=== PATIENT | male | born 1985 | race Caucasian/White ===

== ENCOUNTER → 2019-11-17 10:10 | Outpatient (CLI) | payer OTHER, SELFPAY ==
[2019-11-17 09:41] VITALS: BMI 24.3
[2019-11-17 13:07] LABS: Anion Gap 5 (5-15); BUN 14 mg/dL (7-18); BUN/Creat Ratio 18.8 RATIO (10-20); Calcium,Total 9.2 mg/dL (8.5-10.1); Chloride 105 mmol/L (98-107); Cholesterol 156 mg/dL (200); Creatinine, Serum 0.74 mg/dL (0.70-1.30); EST Glomerular Filtration Rate 128 mL/min (>60); Est Glom Filt Rate - Afr Amer 154 mL/min (>60); Glucose 87 mg/dL (74-106); High Density Lipoprotein 43 mg/dL; Potassium 4.4 mmol/L (3.5-5.1); Sodium Level 138 mmol/L (136-145); Triglycerides 87 mg/dL; Very Low Density Lipoprotein 17 mg/dL (5-40)
== END ==
PROVIDERS: PCP Family Medicine; Referring Provider Family Medicine; Visit Provider Family Medicine
DX: Z00.00 Encounter for general adult medical examination without abnormal findings (principal)
CPT/HCPCS: 36415; 80048; 80061

== ENCOUNTER → 2020-06-22 16:01 | Outpatient (CLI) | payer OTHER, SELFPAY ==
[2020-06-22 15:26] VITALS: BMI 24.3
== END ==
PROVIDERS: PCP Family Medicine; Referring Provider Internal Medicine; Visit Provider Internal Medicine
DX: R10.13 Epigastric pain (principal)
CPT/HCPCS: 36415; 84484

== ENCOUNTER 2020-07-12 09:46 | Emergency (ER) | payer OTHER, SELFPAY ==
[2020-06-22 16:08] VITALS: BMI 24.3
[2020-07-12 09:47] VITALS: BP 163/73; PULSE 104; RESP 16; TEMP 36.3; O2SAT 99; BMI 23.1
--- NOTE | 2020-07-12 10:07 | NURSING ---
NO OLD EKGS
--- NOTE | 2020-07-12 10:08 | EKG12_ITS ---
Test Reason : CHEST DISCOMFORT Blood Pressure : / mmHG Vent. Rate : 091 BPM Atrial Rate : 091 BPM P-R Int : 146 ms QRS Dur : 102 ms QT Int : 352 ms P-R-T Axes : 058 -17 052 degrees QTc Int : 432 ms Normal sinus rhythm Incomplete right bundle branch block Borderline ECG Confirmed by ADELAIDE DUFF, FRANCIA ([id number]), senior technical editor DAGOBERTO DONALDSON ([id number]) on 07/14/2020 1:05:58 PM Referred By: Confirmed By:FRANCIA BRYSON MD
--- NOTE | 2020-07-12 10:08 | RAD_ITS ---
STUDY: X-RAY CHEST REASON FOR EXAM: Male, 35 years old. PALPITATIONS ACUTE ON-SET TECHNIQUE: Single AP portable view of the chest. COMPARISON: None. FINDINGS: EKG electrodes are seen. The lungs are clear and expanded. There is no demonstrated pleural abnormality. Normal size heart. Normal mediastinum and marco. Normal visualized pulmonary arteries. Normal visualized aortic arch and descending thoracic aorta. Normal visualized thoracic spine. Normal visualized ribs, clavicles, and shoulders. There is no demonstrated abnormality of the visualized soft tissue structures of the upper abdomen. RAD/Chest 1 View (Portable) IMPRESSION: Normal x-ray examination of the chest. Electronically Signed: Mushtaq Krishnan, at 10:44 EDT , Service support ,
[2020-07-12 10:18] LABS: Absolute Lymphocyte Count 1.65 X10^3/uL (0.83-4.51); Absolute Neutrophil Count 7.5 X10^3/uL (2.0-7.7); Basophil# 0.02 X10^3/uL; Basophil% 0.2 % (0-1); Eosinophil# 0.11 X10^3/uL; Eosinophils% 1.1 % (0-5); Hematocrit 44.2 % (40-54); Hemoglobin 15.7 g/dL (13.0-16.5); Lymphocyte # 1.65 X10^3/ul (4.0); Lymphocyte % 16.5 % (19-41); Mean Corp Hgb Conc 35.5 g/dL (32-36); Mean Corpuscular Hgb 30.9 pg (27.0-32.0); Mean Platelet Vol. 9.2 fl (6.2-12.0); Monocyte# 0.71 X10^3/uL; Monocyte% 7.1 % (0-10); NRBC Flagged by Analyzer 0 % (0-5); Neutrophil # 7.45 X10^3/uL (2.7-7.7); Neutrophil % 74.8 % (47-70); Platelet Count 204 K/mm3 (150-450); RBC Distribution Width CV 12.6 % (11.6-14.6); RBC Distribution Width SD 39.6 fl (35.1-43.9); Red Blood Count 5.08 M/mm3 (4.6-6.2)
[2020-07-12 10:43] LABS: Anion Gap 4 (5-15); BUN 11 mg/dL (7-18); BUN/Creat Ratio 12.7 RATIO (10-20); Calcium,Total 9.1 mg/dL (8.5-10.1); Chloride 106 mmol/L (98-107); Creatinine, Serum 0.87 mg/dL (0.70-1.30); EST Glomerular Filtration Rate 107 mL/min (>60); Est Glom Filt Rate - Afr Amer 129 mL/min (>60); Estimated Creatinine Clearance 130.02 ml/min; Glucose 117 mg/dL (74-106); Magnesium 2.1 mg/dL (1.6-2.6); Potassium 5.2 mmol/L (3.5-5.1); Sodium Level 140 mmol/L (136-145); Thyroid Stim Hormone (TSH) 1.39 uIU/mL (0.358-3.74)
--- NOTE | 2020-07-12 10:47 | ED.DCSUM_ITS ---
History of Present Illness Chief Complaint: Palpitations Informant: Patient Narrative: Patient states that last night he began to have a heart rate around 100. He states that is definitely different than what he normally feels. He is able to sleep but it was still present this morning. He states sometimes it comes down into the 80s and sometimes up to around 120. He denies any chest pain with it. No shortness of breath. He states that he had bit of a head cold yesterday and took some Sudafed. He has not had any for about 24 hours. He states that he has had 3 pops in the past week. No DVT PE risk factors. He has not had this before. Past Medical History - Allergies and Home Meds Allergies/Adverse Reactions: Allergies Penicillins Allergy (Unknown, Verified 07/12/20 09:46) Unknown Primary Care Physician: Amilcar Maria DO [Primary Care Provider] - Past Medical History: None Surgical History: noncontributory Lives: With Family Smoking Status: Never smoker Drugs: None Review of Systems General: Denies: Chills, Fever, Sweats Eyes: Denies: Visual changes - bilaterally, Diplopia ENT: Denies: Rhinorrhea, Sore throat Cardiovascular: Reports: Heart racing. Denies: Chest pain, Palpitations Respiratory: Denies: Dyspnea, Cough, Dyspnea on exertion Gastrointestinal: Denies: Abdominal pain, Nausea, Vomiting, Diarrhea, Melena, Hematochezia Genitourinary: Denies: Dysuria, Hematuria, Frequency Musculoskeletal: Denies: Back pain, Extremity Pain Skin: Denies: Rash, Wounds Neurological: Denies: Headache, Weakness, Numbness Physical Exam Vital Signs/Narrative: Vital Signs Temp Pulse Resp BP Pulse Ox 07/12/20 09:47 97.3 F L 104 H 16 163/73 H 99 Inital Vital Signs reviewed: Yes General: Well nourished, Well developed, No Acute Distress Head: Normocephalic, Atraumatic Eyes: Perrl, EOMI ENT: Moist mucous membranes, No rhinorrhea Neck: Supple, Nontender Cardiovascular: Regular rate, Regular rhythm, No murmurs Respiratory: No distress, CTA bilaterally, Chest nontender Abdomen: Soft, Nontender, Nondistended, Normal bowel sounds Back: Nontender, Normal Inspection Extremities: Nontender, No edema Skin: Normal color, No rash Neurological: Alert, Oriented x3, Cranial nerves II-XII grossly intact, Normal Strength, Normal Sensation Psychological: Normal affect, Normal Mood Diagnostic/Tx/Re-eval Clinical Impression(s) from Imaging Studies Chest X-Ray 07/12/20 10:08 IMPRESSION: Normal x-ray examination of the chest. Electronically Signed: Mushtaq Krishnan, at 10:44 EDT , Service support , Laboratory Last Values WBC 10.0 K/mm3 (4.4-11.0) 07/12/20 10:10 RBC 5.08 M/mm3 (4.6-6.2) 07/12/20 10:10 Hgb 15.7 g/dL (13.0-16.5) 07/12/20 10:10 Hct 44.2 % (40-54) 07/12/20 10:10 MCV 87.0 fL (80-94) 07/12/20 10:10 MCH 30.9 pg (27.0-32.0) 07/12/20 10:10 MCHC 35.5 g/dL (32-36) 07/12/20 10:10 RDW Std Deviation 39.6 fl (35.1-43.9) 07/12/20 10:10 RDW Coeff of Josh 12.6 % (11.6-14.6) 07/12/20 10:10 Plt Count 204 K/mm3 (150-450) 07/12/20 10:10 MPV 9.2 fl (6.2-12.0) 07/12/20 10:10 Immature Gran % (Auto) 0.300 % (0.0-0.9) 07/12/20 10:10 Neut % (Auto) 74.8 % (47-70) H 07/12/20 10:10 Lymph % (Auto) 16.5 % (19-41) L 07/12/20 10:10 [place] % (Auto) 7.1 % (0-10) 07/12/20 10:10 Eos % (Auto) 1.1 % (0-5) 07/12/20 10:10 Baso % (Auto) 0.2 % (0-1) 07/12/20 10:10 Absolute Neuts (auto) 7.5 X10^3/uL (2.0-7.7) 07/12/20 10:10 Absolute Lymphs (auto) 1.65 X10^3/uL (0.83-4.51) 07/12/20 10:10 Nucleated RBC % 0 % (0-5) 07/12/20 10:10 D-Dimer Quant (PE/DVT) 0.28 FEU/ug/m (0.27-0.49) 07/12/20 10:10 Sodium 140 mmol/L (136-145) 07/12/20 10:10 Potassium 5.2 mmol/L (3.5-5.1) H 07/12/20 10:10 Chloride 106 mmol/L (98-107) 07/12/20 10:10 Carbon Dioxide 30.0 mmol/L (21.0-32.0) 07/12/20 10:10 Anion Gap 4 (5-15) L 07/12/20 10:10 BUN 11 mg/dL (7-18) 07/12/20 10:10 Creatinine 0.87 mg/dL (0.70-1.30) 07/12/20 10:10 Estim Creat Clear Calc 130.02 ml/min 07/12/20 10:10 Est GFR (MDRD) Af Amer 129 mL/min (>60) 07/12/20 10:10 Est GFR (MDRD) Non-Af 107 mL/min (>60) 07/12/20 10:10 BUN/Creatinine Ratio 12.7 RATIO (-20) 07/12/20 10:10 Glucose 117 mg/dL (74-106) H 07/12/20 10:10 Calcium 9.1 mg/dL (8.5-10.1) 07/12/20 10:10 Magnesium 2.1 mg/dL (1.6-2.6) 07/12/20 10:10 Troponin I < 0.015 ng/mL (<0.045) 07/12/20 10:10 TSH 1.39 uIU/mL (0.358-3.74) 07/12/20 10:10 - EKG Initial EKG Interpretation: Sinus Rhythm - EKG demonstrates a normal sinus rhythm with an incomplete right bundle branch block. - Medical Decision Making The patient was observed on the monitor and has had quite a variety of rate. It does not coincide with respiratory variation or Valsalva. Patient was observed on the monitor. He has had rates as low as 71 and as high as 119. I discussed the case with Dr. Jenkins from cardiology and we reviewed his EKG. At this point patient will abstain from any stimulant such as the Sudafed or caffeinated products. He is to monitor his heart rate if he continues to be above 100 he should follow-up with cardiology return if worsening or concerns ED Disposition - Plan for ED Patient: Disposition: Home or Assisted Living Diagnosis: Sinus arrhythmia, Chest pain Instructions: ED Palpitations Referrals: Eriberto Jenkins MD [STAFF PHYSICIAN] - (call to arrange follow up with Cardiology if needed)
[2020-07-12 10:59] LABS: D-Dimer Quantitative (DVT/PE) 0.28 FEU/ug/m (0.27-0.49)
[2020-07-12 11:30] VITALS: BP 135/92; PULSE 92; RESP 22; O2SAT 97
[2020-07-12 12:15] VITALS: BP 125/92; PULSE 87; RESP 24; O2SAT 97
== END 2020-07-12 12:16 | disposition home or self-care (01) ==
PROVIDERS: Emergency Provider Emergency Medicine; PCP Family Medicine
DX: R07.89 Other chest pain (principal); I49.9 Cardiac arrhythmia, unspecified; I45.10 Unspecified right bundle-branch block
CPT/HCPCS: 71045; 80048; 83735; 84443; 84484; 85025; 85379; 93005; 99284; A4216

== ENCOUNTER 2020-07-14 14:37 | Emergency (ER) | payer OTHER, SELFPAY ==
[2020-07-14 14:39] VITALS: BP 146/109; PULSE 99; RESP 17; TEMP 36.9; O2SAT 99; BMI 23.4
--- NOTE | 2020-07-14 16:07 | EKG12_ITS ---
Test Reason : LEFT ARM PAIN Blood Pressure : / mmHG Vent. Rate : 068 BPM Atrial Rate : 068 BPM P-R Int : 128 ms QRS Dur : 106 ms QT Int : 374 ms P-R-T Axes : 049 002 049 degrees QTc Int : 397 ms Sinus rhythm with marked sinus arrhythmia Incomplete right bundle branch block Borderline ECG Confirmed by ADELAIDE DUFF, FRANCIA ([id number]), scientific publications editor DAGOBERTO DONALDSON ([id number]) on 07/19/2020 8:43:29 AM Referred By: Confirmed By:FRANCIA BRYSON MD
--- NOTE | 2020-07-14 16:08 | ED.DCSUM_ITS ---
History of Present Illness Chief Complaint: Cough Informant: Patient Narrative: Patient was seen 2 days ago by myself for palpitations. He had a runny nose and slight sore throat. No fevers. He had an EKG that was negative. He states that he continues to have the occasional discomfort in the left upper chest with intermittent tingling of the left arm and hand. States [facility] and [facility] forehead scan and his temperature was 100.4 but when he got here he was afebrile. He states that his and children has a runny nose as well. Someone that he was with on Friday has now tested positive for COVID. He has cardiology follow-up next Friday. Past Medical History - Allergies and Home Meds Allergies/Adverse Reactions: Allergies Penicillins Allergy (Unknown, Verified 07/14/20 14:39) Unknown Primary Care Physician: Eriberto Jenkins MD [STAFF PHYSICIAN] - Keep Martin appointment Amilcar Maria DO [Primary Care Provider] - 1 Week if not improving Prior records reviewed: Yes Past Medical History: None Surgical History: noncontributory Lives: With Family Smoking Status: Never smoker Drugs: None Review of Systems General: Denies: Chills, Fever, Sweats Eyes: Denies: Visual changes - bilaterally, Diplopia ENT: Reports: Rhinorrhea, Sore throat Cardiovascular: Reports: Chest pain. Denies: Palpitations Respiratory: Reports: Cough. Denies: Dyspnea, Dyspnea on exertion Gastrointestinal: Denies: Abdominal pain, Nausea, Vomiting, Diarrhea, Melena, Hematochezia Genitourinary: Denies: Dysuria, Hematuria, Frequency Musculoskeletal: Denies: Back pain, Extremity Pain Skin: Denies: Rash, Wounds Neurological: Reports: Parasthesia. Denies: Headache, Weakness, Numbness Physical Exam Vital Signs/Narrative: Vital Signs Temp Pulse Resp BP Pulse Ox 07/14/20 14:39 98.5 F 99 17 146/109 H 99 Inital Vital Signs reviewed: Yes General: Well nourished, Well developed, No Acute Distress Head: Normocephalic, Atraumatic Eyes: Perrl, EOMI ENT: Moist mucous membranes, Nasal congestion Neck: Supple, Nontender Cardiovascular: Regular rate, Regular rhythm, No murmurs Respiratory: No distress, CTA bilaterally, Chest nontender Abdomen: Soft, Nontender, Nondistended, Normal bowel sounds Back: Nontender, Normal Inspection Extremities: Nontender, No edema Skin: Normal color, No rash Neurological: Alert, Oriented x3, Cranial nerves II-XII grossly intact, Normal Strength, Normal Sensation Psychological: Normal affect, Normal Mood Diagnostic/Tx/Re-eval Clinical Impression(s) from Imaging Studies Chest X-Ray 07/14/20 16:20 IMPRESSION: Normal x-ray examination of the chest. Electronically Signed: Cal Stevenson MD at 16:44 EDT , Service support , - EKG Initial EKG Interpretation: Sinus Rhythm - EKG demonstrated sinus rhythm with sinus arrhythmia. Incomplete right bundle branch block noted. Rate of 68. No significant change from 2 days ago. - Medical Decision Making Chest x-ray shows no acute process and his EKG is unchanged. Patient had a d- dimer and troponin days ago that were negative. As his symptoms really have not changed I do not feel they need to be repeated. We will swab him for COVID. He has follow-up arranged with cardiology. Patient should self isolate until his COVID is back. ED Disposition - Plan for ED Patient: Disposition: Home or Assisted Living Diagnosis: Viral URI with cough, Palpitations Instructions: ED Palpitations, ED URI Viral Referrals: Amilcar Maria DO [Primary Care Provider] - 1 Week if not improving Eriberto Jenkins MD [STAFF PHYSICIAN] - Keep Martin appointment
--- NOTE | 2020-07-14 16:20 | RAD_ITS ---
STUDY: X-RAY CHEST REASON FOR EXAM: Male, 35 years old. COUGH, SORE THROAT AND FEVER STARTING FRIDAY - -- PALPITATIONS, AND TINGLING DOWN LEFT ARM -- REPORTS INTERMITTENT CHEST DISCOMFORT TECHNIQUE: Single AP portable view of the chest. COMPARISON: 07/12/2020. FINDINGS: The lungs are clear and expanded. There is no demonstrated pleural abnormality. Normal size heart. Normal mediastinum and marco. Normal visualized pulmonary arteries. Normal visualized aortic arch and descending thoracic aorta. Normal visualized thoracic spine. Normal visualized ribs, clavicles, and shoulders. There is no demonstrated abnormality of the visualized soft tissue structures of the upper abdomen. RAD/Chest 1 View (Portable) IMPRESSION: Normal x-ray examination of the chest. Electronically Signed: Cal Stevenson MD at 16:44 EDT , Service support ,
[2020-07-14 17:00] VITALS: BP 152/98; PULSE 101; RESP 17; TEMP 37.2; O2SAT 98
== END 2020-07-14 17:00 | disposition home or self-care (01) ==
PROVIDERS: Emergency Provider Emergency Medicine; PCP Family Medicine
DX: J06.9 Acute upper respiratory infection, unspecified (principal); R00.2 Palpitations; I45.10 Unspecified right bundle-branch block
CPT/HCPCS: 71045; 87635; 93005; 99282; U0003

== ENCOUNTER → 2020-08-16 11:00 | Outpatient (CLI) | payer OTHER, SELFPAY ==
[2020-07-19 09:36] VITALS: BMI 23.8
[2020-07-26 11:12] VITALS: BMI 23.8
--- NOTE | 2020-08-16 11:02 | ECHOD_ITS ---
Reason For Study: ARRHYTHYMIA Procedure This was a 2D Doppler, Color Flow transthoracic echocardiogram. Exam performed in department. Left Ventricle Normal LV size. Left ventricular systolic function is normal. The estimated ejection fraction is 55 %. Normal diastology for age. No regional wall motion abnormalities noted. Right Ventricle Normal RV size. Normal systolic function. Atria Normal left atrium. Normal right atrium. Mitral Valve Normal mitral valve. Tricuspid Valve Normal tricuspid valve. Aortic Valve Normal aortic valve. Pulmonic Valve Normal pulmonic valve. Great Vessels Normal aortic root. The pulmonary artery is normal size. Inferior vena cava collapse with respiration. Pericardium/Pleural No pericardial effusion. MMode/2D Measurements & Calculations LVIDd: 5.7 cm IVSd: 0.86 cm Ao root diam: 3.5 cm LVIDs: 3.9 cm LVPWd: 0.95 cm RVDd: 4.1 cm FS: 32.2 % LAV(MOD-bp): 48.8 ml LVAd ap4: 35.8 cm2 SV(MOD-sp4): 75.8 ml LAV(MOD-bp) Indexed: 24.2 ml/m2 EDV(MOD-sp4): 125.3 ml LAV(MOD-sp2): 49.1 ml EDV(sp4-el): 124.4 ml LAV(MOD-sp4): 48.0 ml LVAs ap4: 19.4 cm2 ESV(MOD-sp4): 49.5 ml ESV(sp4-el): 45.9 ml EF(MOD-sp4): 60.5 % EF(sp4-el): 63.1 % SV(sp4-el): 78.5 ml LA A4 area: 17.8 cm2 LA dimension(2D): 3.5 cm RA A4 area: 15.6 cm2 Time Measurements MV dec time: 0.18 sec Doppler Measurements & Calculations MV E max rosales: 76.7 cm/sec Lat Peak E' Rosales: 17.1 cm/sec Med Peak E' Rosales: 12.4 cm/sec MV A max rosales: 45.4 cm/sec E/E' lat: 4.5 E/E' med: 6.2 MV E/A: 1.7 Ao V2 max: 135.7 cm/sec LV V1 max: 112.6 cm/sec PA V2 max: 110.8 cm/sec Ao max P.4 mmHg LV V1 max P.1 mmHg Interpretation Summary Normal LV size. Left ventricular systolic function is normal. The estimated ejection fraction is 55 %. Normal diastology for age. Ordering Physician: Eriberto Jenkins Referring Physician: AVIS GRAVES Performed By: Rosy Agarwal RDCS
== END ==
PROVIDERS: PCP Family Medicine; Referring Provider Internal Medicine Cardiovascular Disease; Visit Provider Internal Medicine Cardiovascular Disease
DX: I49.9 Cardiac arrhythmia, unspecified (principal)
CPT/HCPCS: 93225; 93226; 93306

== ENCOUNTER → 2020-09-01 09:49 | Outpatient (CLI) | payer OTHER, SELFPAY ==
[2020-07-26 11:12] VITALS: BMI 23.8
--- NOTE | 2020-09-01 12:47 | STRESSREP_ITS ---
Stress Test Report Exercise stress test. 35-year-old male with a history of chest pain. Stress protocol: Resting EKG demonstrates normal sinus rhythm with a rate of 54 bpm normal intervals are noted resting blood pressure 124/82 mmHg. Patient exercised according to regular Rogelio protocol for a total duration of 13 minutes. Patient completed 1 minute into stage V of the Rogelio protocol. The maximum heart rate attained was 193 bpm which was 104% of max impacted heart rate the maximum workload was 15.3 metabolic equivalents. At rest there were no ST or T wave changes noted to suggest ischemia peak exercise upsloping ST changes only were noted with no meet the criteria for ischemia. No clinical angina was noted. No arrhythmias were noted. The peak blood pressure was 150/70 mmHg. Conclusion: Exercise stress test with no EKG criteria for ischemia at a high workload. Chest discomfort noted of unclear significance.. The above was constant thro ughout the exercise.
== END ==
PROVIDERS: PCP Family Medicine; Referring Provider Internal Medicine Cardiovascular Disease; Visit Provider Internal Medicine Cardiovascular Disease
DX: I49.9 Cardiac arrhythmia, unspecified (principal); I45.10 Unspecified right bundle-branch block; R07.9 Chest pain, unspecified
CPT/HCPCS: 93017

== ENCOUNTER 2020-09-09 18:37 | Emergency (ER) | payer OTHER, SELFPAY ==
[2020-07-26 11:12] VITALS: BMI 23.8
[2020-09-09 18:39] VITALS: BP 177/91; PULSE 60; RESP 17; TEMP 36.9; O2SAT 97; BMI 24.2
--- NOTE | 2020-09-09 18:42 | EKG12_ITS ---
Test Reason : CP Blood Pressure : / mmHG Vent. Rate : 060 BPM Atrial Rate : 060 BPM P-R Int : 124 ms QRS Dur : 106 ms QT Int : 406 ms P-R-T Axes : 063 003 054 degrees QTc Int : 406 ms Normal sinus rhythm Incomplete right bundle branch block Borderline ECG Confirmed by ADELAIDE DUFF, FRANCIA ([id number]), video editor HERIBERTO DOSHI ([id number] on 09/13/2020 12:52:36 PM Referred By: PHAN Confirmed By:FRANCIA BRYSON MD
--- NOTE | 2020-09-09 18:57 | ED.VISSUMM ---
- ER Visit Summary Date of Service: 09/09/20 Chief Complaint: Chest pain History of Present Illness: The patient is a 35 M with chest pain that he describes as a tingling across his chest. This has been going on for 8 weeks. Nothing seemed to bring this on today. He had a negative stress test. He also had an echo and Holter monitoring. He has a history of anxiety and has taken 2 doses of an SSRI. Physical Examination: Afebrile and vital signs unremarkable except blood pressure 177/91. Heart regular. Lungs clear. Skin, calves, pulses unremarkable. Test Results: EKG shows sinus rhythm at a rate of 60 with an incomplete right bundle branch block pattern, this is old. Emergency Department Course and Treatment: Patient had a cardiac work-up. PERC negative. Nothing to suggest an aortic dissection. No infectious symptoms. I suspect this is from some component of anxiety. Patient will follow up with his outpatient physicians. Return for anything new or worsening. Treatment Plan: As above Disposition: Discharge Impression: Paresthesias This note was generated with [employer] dictation software. It may contain incorrect words, spelling, and punctuation that were not noted in review of the chart prior to signing ED Disposition - Plan for ED Patient: Referrals: Amilcar Maria DO [Primary Care Provider] -
--- NOTE | 2020-09-09 18:59 | ED.DEP ---
ED Disposition - Plan for ED Patient: Instructions: ED Chest Pain Atypical Unkn Cause Referrals: Amilcar Maria DO [Primary Care Provider] -
[2020-09-09 19:15] VITALS: RESP 16
== END 2020-09-09 19:15 | disposition home or self-care (01) ==
LOC: ED 19:07
PROVIDERS: Emergency Provider Emergency Medicine; PCP Family Medicine
DX: R07.89 Other chest pain (principal); R20.2 Paresthesia of skin; I45.10 Unspecified right bundle-branch block; F41.9 Anxiety disorder, unspecified; Z79.899 Other long term (current) drug therapy
CPT/HCPCS: 93005; 99282

== ENCOUNTER → 2020-09-27 10:02 | Outpatient (CLI) | payer OTHER, SELFPAY ==
[2020-09-09 18:39] VITALS: BMI 24.2
[2020-09-27 12:13] LABS: Absolute Lymphocyte Count 1.62 X10^3/uL (0.83-4.51); Absolute Neutrophil Count 2.4 X10^3/uL (2.0-7.7); Basophil# 0.03 X10^3/uL; Basophil% 0.7 % (0-1); Eosinophil# 0.05 X10^3/uL; Eosinophils% 1.1 % (0-5); Hematocrit 47.8 % (40-54); Hemoglobin 16.5 g/dL (13.0-16.5); Lymphocyte # 1.62 X10^3/ul (4.0); Lymphocyte % 36.6 % (19-41); Mean Corp Hgb Conc 34.5 g/dL (32-36); Mean Corpuscular Hgb 30.7 pg (27.0-32.0); Mean Platelet Vol. 9.7 fl (6.2-12.0); Monocyte% 6.8 % (0-10); NRBC Flagged by Analyzer 0 % (0-5); Neutrophil # 2.43 X10^3/uL (2.7-7.7); Neutrophil % 54.8 % (47-70); Platelet Count 221 K/mm3 (150-450); RBC Distribution Width CV 12.6 % (11.6-14.6); RBC Distribution Width SD 41.4 fl (35.1-43.9); Red Blood Count 5.37 M/mm3 (4.6-6.2); White Blood Count 4.4 K/mm3 (4.4-11.0)
[2020-09-27 12:42] LABS: ALB/GLOB Ratio 1.2 RATIO (0.9-2.4); AST(SGOT) 21 U/L (15-37); Alanine Aminotransfer ALT/SGPT 25 U/L (16-61); Albumin, Serum 4.4 g/dL (3.2-5.0); Alkaline Phosphatase 93 U/L (45-117); Anion Gap 5 (5-15); BUN 11 mg/dL (7-18); BUN/Creat Ratio 13.9 RATIO (10-20); Calcium,Total 9.5 mg/dL (8.5-10.1); Chloride 103 mmol/L (98-107); Creatinine, Serum 0.79 mg/dL (0.70-1.30); EST Glomerular Filtration Rate 118 mL/min (>60); Est Glom Filt Rate - Afr Amer 143 mL/min (>60); Globulin 3.8 g/dL (2.2-4.2); Glucose 87 mg/dL (74-106); Potassium 4.1 mmol/L (3.5-5.1); Protein, Total 8.2 g/dL (6.4-8.2); Sodium Level 139 mmol/L (136-145)
== END ==
PROVIDERS: PCP Family Medicine; Referring Provider Family Medicine; Visit Provider Family Medicine
DX: R42 Dizziness and giddiness (principal)
CPT/HCPCS: 36415; 80053; 85025

== ENCOUNTER → 2020-09-28 11:09 | Outpatient (CLI) | payer OTHER, SELFPAY ==
[2020-09-09 18:39] VITALS: BMI 24.2
[2020-09-28 12:31] LABS: Bilirubin, Direct 0.32 mg/dL (0.00-0.30)
== END ==
PROVIDERS: PCP Family Medicine; Referring Provider Family Medicine; Visit Provider Family Medicine
DX: R17 Unspecified jaundice (principal)
CPT/HCPCS: 36415; 82247; 82248

== ENCOUNTER → 2021-03-01 14:05 | Outpatient (CLI) | payer OTHER, SELFPAY ==
[2021-03-01 15:14] LABS: Absolute Lymphocyte Count 2.51 X10^3/uL (0.83-4.51); Absolute Neutrophil Count 3.2 X10^3/uL (2.0-7.7); Basophil# 0.03 X10^3/uL; Basophil% 0.5 % (0-1); Eosinophil# 0.08 X10^3/uL; Eosinophils% 1.3 % (0-5); Hematocrit 42.6 % (40-54); Hemoglobin 14.8 g/dL (13.0-16.5); Lymphocyte # 2.51 X10^3/ul (0.83-4.51); Lymphocyte % 40.4 % (19-41); Mean Corp Hgb Conc 34.7 g/dL (32-36); Mean Corpuscular Hgb 30.7 pg (27.0-32.0); Mean Corpuscular Volume 88.4 fL (80-94); Mean Platelet Vol. 9.4 fl (6.2-12.0); Monocyte# 0.36 X10^3/uL; Monocyte% 5.8 % (0-10); NRBC Flagged by Analyzer 0 % (0-5); Neutrophil # 3.22 X10^3/uL (2.7-7.7); Neutrophil % 51.8 % (47-70); Platelet Count 249 K/mm3 (150-450); RBC Distribution Width CV 12.2 % (11.6-14.6); RBC Distribution Width SD 39.6 fl (35.1-43.9); Red Blood Count 4.82 M/mm3 (4.6-6.2); White Blood Count 6.2 K/mm3 (4.4-11.0)
[2021-03-01 15:26] LABS: AST(SGOT) 17 U/L (15-37); Alanine Aminotransfer ALT/SGPT 20 U/L (16-61); Albumin, Serum 3.8 g/dL (3.2-5.0); Alkaline Phosphatase 96 U/L (45-117); Anion Gap 6 (5-15); BUN 11 mg/dL (7-18); Calcium,Total 8.9 mg/dL (8.5-10.1); Chloride 102 mmol/L (98-107); Creatinine, Serum 0.73 mg/dL (0.70-1.30); EST Glomerular Filtration Rate 129 mL/min (>60); Est Glom Filt Rate - Afr Amer 156 mL/min (>60); Glucose 106 mg/dL (74-106); Potassium 3.9 mmol/L (3.5-5.1); Protein, Total 7.8 g/dL (6.4-8.2); Sodium Level 139 mmol/L (136-145)
== END ==
PROVIDERS: PCP Family Medicine; Referring Provider Family Medicine; Visit Provider Family Medicine
DX: E80.4 Gilbert syndrome (principal)
CPT/HCPCS: 36415; 80053; 85025

== ENCOUNTER → 2021-08-06 15:20 | Outpatient (CLI) | payer OTHER, SELFPAY ==
--- NOTE | 2021-08-06 15:35 | RAD_ITS ---
STUDY: X-RAY - ORBITS REASON FOR EXAM: Male, 36 years old. FOREIGN BODY TECHNIQUE: 2 view(s) of the orbits were obtained. COMPARISON: None. FINDINGS: Normal bilateral orbits without a metallic orbital foreign body. Normal visualized facial bones. Normal paranasal sinuses. The soft tissue structures are unremarkable. RAD/Orbits for Foreign Body IMPRESSION: No demonstrated metallic orbital foreign body. The patient is cleared for an MRI examination. Electronically Signed: Mushtaq Krishnan MD at 15:45 EDT , Service support ,
--- NOTE | 2021-08-06 16:00 | MRI_ITS ---
STUDY: MRI CERVICAL SPINE WITH AND WITHOUT CONTRAST REASON FOR EXAM: Male, 36 years old. PARESTHESIAS,FASCICULATIONS,POSSIBLE DYSAUTONOMIA TECHNIQUE: Standardized fat and water weighted pulse sequences were obtained in the sagittal and axial following administration of 15ml Dotarem via IV. COMPARISON: None FINDINGS: Nonenhancing cystic structures surrounded the exiting nerve roots on the right and C5-6, C6-7, C7-T1, and T1 to, and on the left at C6-7, and T1-2. Normal foramen magnum and brainstem-cervical cord junction. Normal craniovertebral junction. Normal anterior atlantoaxial articulation. Normal odontoid process. Normal cervical lordosis. Normal vertebral bodies and posterior osseous elements. C2-3: Normal endplates. Normal disc height, signal and morphology. Normal central canal and intervertebral neural foramina. C3-4: Normal endplates. Normal disc height, signal and morphology. Normal central canal and intervertebral neural foramina. C4-5: Normal endplates. Normal disc height, signal and morphology. Normal central canal and intervertebral neural foramina. C5-6: Normal endplates. Normal disc height, signal and morphology. Normal central canal and intervertebral neural foramina. C6-7: Normal endplates. Normal disc height, signal and morphology. Normal central canal and intervertebral neural foramina. C7-T1: Normal endplates. Normal disc height, signal and morphology. Normal central canal and intervertebral neural foramina. Normal cervical cord. No abnormal cord signal. Normal visualized soft tissue structures. 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 Otherwise normal unenhanced and enhanced MR examination of the cervical spine. Electronically Signed: Arian Landin MD at 22:24 EDT Tel , Service support ,
--- NOTE | 2021-08-06 16:45 | MRI_ITS ---
STUDY: MRI BRAIN WITH AND WITHOUT CONTRAST REASON FOR EXAM: Male, 36 years old. PARESTHESIAS,FASCICULATIONS,POSSIBLE DYSAUTONOMIA TECHNIQUE: Standardized multiplanar fat and water weighted pulse sequences were obtained. IV 15ml Dotarem was administered for the contrast portion of the examination. COMPARISON: None. FINDINGS: Normal size of the ventricles and extra-axial spaces for the patient''s age. Normal white matter tracts of the supratentorial brain. There is no evidence for recent intracranial ischemia or other cause of cytotoxic edema on diffusion weighted imaging (DWI). Normal T2* images of the brain without demonstrated susceptibility artifact. There is no demonstrated hemosiderin stain. There are no demyelinating plagues of the supratentorial brain, brainstem or cerebellum. There are no findings suspicious for multiple sclerosis (MS). Normal bilateral basal ganglia. Normal thalami. There is no extra-axial fluid accumulation. Normal flow voids within the major intracranial circulation suggesting patency by spin echo criteria. Normal venous enhancement. There is no enhancing intra-axial or extra-axial abnormality. Normal sella turcica, pituitary gland, infundibular stalk, optic chiasm and hypothalamus. Normal tectal plate and pineal gland. Normal midbrain, rajesh and medulla. Normal cerebellum. Normal basal cisterns. Normal bilateral temporal bones. Normal bilateral internal auditory canals. No demonstrated orbital abnormality, within the constraints of a routine brain study. Normal visualized paranasal sinuses. Normal calvarium and skull base. Normal visualized soft tissue structures. Normal visualized upper cervical spine. MRI/Brain W/WO Contrast IMPRESSION: Normal unenhanced and enhanced MRI of the brain. Electronically Signed: Arian Landin MD at 22:15 EDT Tel , Service support ,
== END ==
PROVIDERS: PCP Family Medicine; Referring Provider Family Medicine; Visit Provider Family Medicine
DX: R20.2 Paresthesia of skin (principal); R25.3 Fasciculation; R42 Dizziness and giddiness
CPT/HCPCS: 70030; 70553; 72156; A9575

== ENCOUNTER → 2023-09-16 | Outpatient (CLI) | payer OTHER, SELFPAY ==
[2023-09-16 17:43] LABS: Absolute Lymphocyte Count 2.25 X10^3/uL (0.83-4.51); Absolute Neutrophil Count 4.6 X10^3/uL (2.0-7.7); Basophil# 0.04 X10^3/uL; Basophil% 0.5 % (0-1); Eosinophil# 0.06 X10^3/uL; Eosinophils% 0.8 % (0-5); Hematocrit 45.2 % (40-54); Hemoglobin 15.8 g/dL (13.0-16.5); Lymphocyte # 2.25 X10^3/ul (0.83-4.51); Lymphocyte % 30.4 % (19-41); Mean Corpuscular Hgb 30.6 pg (27.0-32.0); Mean Corpuscular Volume 87.6 fL (80-94); Mean Platelet Vol. 9.6 fl (6.2-12.0); Monocyte% 5.4 % (0-10); NRBC Flagged by Analyzer 0 % (0-5); Neutrophil # 4.62 X10^3/uL (2.7-7.7); Neutrophil % 62.6 % (47-70); Platelet Count 261 K/mm3 (150-450); RBC Distribution Width CV 12.9 % (11.6-14.6); RBC Distribution Width SD 41.2 fl (35.1-43.9); Red Blood Count 5.16 M/mm3 (4.6-6.2); White Blood Count 7.4 K/mm3 (4.4-11.0)
[2023-09-16 18:14] LABS: AST(SGOT) 23 U/L (15-37); Alanine Aminotransfer ALT/SGPT 27 U/L (16-61); Albumin, Serum 4.1 g/dL (3.2-5.0); Alkaline Phosphatase 112 U/L (45-117); Anion Gap 7 (5-15); BUN 8 mg/dL (7-18); BUN/Creat Ratio 11.1 RATIO (10-20); Chloride 103 mmol/L (98-107); Cholesterol 181 mg/dL (200); Creatinine, Serum 0.72 mg/dL (0.70-1.30); EST Glomerular Filtration Rate 130 mL/min (>60); Est Glom Filt Rate - Afr Amer 157 mL/min (>60); Globulin 4.3 g/dL (2.2-4.2); Glucose 89 mg/dL (74-106); High Density Lipoprotein 47 mg/dL; Potassium 4.2 mmol/L (3.5-5.1); Protein, Total 8.4 g/dL (6.4-8.2); Sodium Level 139 mmol/L (136-145); T4 Free Direct 1.02 ng/dL (0.76-1.46); Thyroid Stim Hormone (TSH) 1.85 uIU/mL (0.358-3.74); Triglycerides 99 mg/dL; Very Low Density Lipoprotein 20 mg/dL (5-40)
== END | disposition home or self-care (01) ==
LOC: BFHLAB 14:28
PROVIDERS: PCP Family Medicine; Visit Provider Family Medicine
DX: Z00.00 Encounter for general adult medical examination without abnormal findings (principal); R53.83 Other fatigue
CPT/HCPCS: 36415; 80053; 80061; 84439; 84443; 85025

== ENCOUNTER 2024-09-04 17:54 | Emergency (ER) | payer OTHER, SELFPAY ==
[2024-09-04] VITALS (7 sets, daily range): BP systolic 131–150; BP diastolic 68–112; PULSE 73–91; RESP 16–25; TEMP 35.9–36.7; O2SAT 97–100
--- NOTE | 2024-09-04 18:13 | EDS_ITS ---
HPI History of Present Illness Chief Complaint: Chest Pain Informant: patient Onset/Context/Timing Onset: Today and Hours (1.5) Activity at onset: sudden and exertion (Walking) Timing: Continuous Quality: Positive for Tightness Location: Left Chest and - (Left arm) Worsened By: Nothing Relieved By: Nothing Associated Symptoms: Positive for Diaphoresis, Dyspnea, Lightheadedness and Palpitations; Negative for Nausea, Vomiting, Cough, Fever or Acid Reflux Narrative Narrative: Patient presents with chest pain that began today, approximately 90 minutes prior to arrival. Patient states he was walking when the pain began. Patient states that it has been constant for the past hour. Patient states it is mainly over the left side of his chest. Patient states it radiates down his left arm. Patient states nothing makes it better and nothing makes it worse. Patient admits to some lightheadedness with this. Patient also admits to some palpitations. Patient admits to some shortness of breath and some mild diaphoresis. Patient denies any nausea or vomiting. Patient denies any cough or fever. CVD Risk Factors: Positive for Hypertension; Negative for Diabetes, Hypercholesterolemia, Family History 1' </=55 or Smoking PE Risk Factors: Negative for Recent Travel/Surgery, Recent Immobilization, Prior DVT or PE, Cancer or OCP + Smoking + >/=35 PFSH PFSH Medical History (Updated 09/04/24 @ 21:[address] Emerson Mukherjee DO) Hypertension Headache External hemorrhoid Neck pain Gastritis Physical exam Chronic headaches Back problem Allergy/AdvReac Type Severity Reaction Status Date / Time Penicillins Allergy Unknown Unknown Verified 09/04/24 17:54 Family History Unknown Cancer Other Diabetes Hypertension Surgical History History of wisdom tooth extraction History of herniorrhaphy Social History Smoking Status: Never smoker alcohol intake: never substance use type: does not use what type of physical activity do you participate in: walking ROS ROS ED Constitutional Constitutional ED: Denies chills or fever(s) Eyes Eyes: Denies blurry vision or change in vision ENT ENT ED: Denies rhinorrhea or sore throat Cardiovascular Cardiovascular: Reports chest pain and palpitations Respiratory/Chest Respiratory/Chest: Reports dyspnea; Denies cough Gastrointestinal Gastrointestinal: Denies nausea or vomiting Genitourinary Genitourinary ED: Reports dysuria; Denies hematuria Musculoskeletal Musculoskeletal: Denies back pain or neck pain Integumentary Denies abscess or rash Neurologic Neurologic: Reports headache(s); Denies weakness Allergic/Immunologic Allergic/Immunologic ED: Denies mouth swelling or urticaria EXAM Physical Exam Const Vital Signs: 09/04/24 17:55 09/04/24 18:23 09/04/24 18:36 Temperature 96.7 F L Temperature Source Temporal Pulse Rate 90 Respiratory Rate 18 Respiratory Effort Normal Blood Pressure 148/106 H Blood Pressure Mean 120 Pulse Ox 100 Oxygen Delivery Method Room Air Room Air 09/04/24 18:54 09/04/24 19:06 09/04/24 19:35 Temperature Temperature Source Pulse Rate 77 85 73 Respiratory Rate 18 16 Respiratory Effort Blood Pressure 148/94 H 150/112 H 131/98 H Blood Pressure Mean 112 109 Pulse Ox 98 97 Oxygen Delivery Method Room Air Room Air 09/04/24 20:00 09/04/24 21:00 Temperature Temperature Source Pulse Rate 91 81 Respiratory Rate 22 H 25 H Respiratory Effort Blood Pressure 138/93 H 145/90 H Blood Pressure Mean 108 108 Pulse Ox 99 98 Oxygen Delivery Method Room Air Room Air Positive well nourished and well developed General Appearance ED: well developed and NAD HEENT Reports moist mucous membranes Neck supple and no JVD Chest Wall inspection of chest normal Resp normal respiratory effort and clear to auscultation bilaterally Cardio regular rate and regular rhythm GI soft to palpation, non-tender and non-distended Neuro oriented x3, CN's II-XII intact bilaterally and no sensory deficits noted Sensorium / Orientation: awake and alert Motor Exam: strength 5/5 throughout Psych mental status grossly normal Heart Score History: Moderately Suspicious ECG: Normal Age: </= 45 years Risk Factors: 1 or 2 Risk Factors Troponin: </= Normal Limit Score: 2 MDM MDM MDM Narrative Medical decision making narrative: Differential diagnosis includes cardiac dysrhythmia, cardiac ischemia, pneumonia, pneumothorax, electrolyte abnormality, gastroesophageal reflux disease, and anxiety. EKG will be obtained to assess for cardiac dysrhythmia and cardiac ischemia. Chest x-ray will be obtained to assess for pneumonia and pneumothorax. CBC will be obtained to assess for leukocytosis and anemia. Basic metabolic profile will be obtained to assess for electrolyte abnormality and renal function. High-sensitivity troponin will be obtained to assess for cardiac ischemia. 2-hour repeat high-sensitivity troponin will be obtained to assess for ongoing cardiac ischemia. Lab Data Attestation: I reviewed the patient's lab results. Lab results narrative: CBC was reviewed and was within normal limits. Basic metabolic profile was reviewed and was within normal limits. High-sensitivity troponin was reviewed and was normal at 6. 2-hour repeat high-sensitivity troponin was reviewed and was normal at 6. Labs: Laboratory Results - last 24 hr 09/04/24 09/04/24 18:15 20:20 WBC 8.0 RBC 5.10 Hgb 16.1 Hct 44.1 MCV 86.5 MCH 31.6 MCHC 36.5 H RDW Std Deviation 39.8 RDW Coeff of Josh 12.6 Plt Count 245 MPV 9.2 Immature Gran % (Auto) 0.200 Neut % (Auto) 48.3 Lymph % (Auto) 43.8 H [place] % (Auto) 6.1 Eos % (Auto) 1.2 Baso % (Auto) 0.4 Absolute Neuts (auto) 3.9 Absolute Lymphs (auto) 3.51 Nucleated RBC % 0 Sodium 139 Potassium 3.7 Chloride 104 Carbon Dioxide 29.0 Anion Gap 6 BUN 14 Creatinine 0.87 Est GFR (MDRD) Af Amer 126 Est GFR (MDRD) Non-Af 104 BUN/Creatinine Ratio 16.1 Glucose 108 H Calcium 9.5 Troponin I High Sens 6 6 Radiography Chest X-Ray - ED: 1 View, Read by ED Physician, Read by Radiologist and No Acute Disease Diagnostic Testing: Clinical Impression(s) from Imaging Studies Chest X-Ray 09/04/24 18:50 IMPRESSION: No radiographic evidence of acute cardiopulmonary disease. Electronically Signed: Armida Cool MD at 19:46 EST Reading Location ID and State: [id number] / Tel , Service support , Portable 1 view chest x-ray was obtained. On my independent interpretation, lung aggarwal are clear. There is normal cardiac silhouette. Bony thorax is normal. There is no acute process noted. Radiologist also interpreted the x- ray and agrees. EKG Initial EKG: Attestation: I personally reviewed and interpreted this EKG as follows: Interpretation: Sinus Rhythm (70) and RBBB (Incomplete) Comments: EKG was obtained. On my independent interpretation, it showed a normal sinus rhythm with a rate of 70. [place] interval, QRS interval, and QTc intervals were all normal. [place] was normal. There is an incomplete right bundle branch block pattern. There are no acute ST or T wave changes. Prior EKG tracings: available for review Prior: Unchanged (09/09/2020) Treatment and Re-Evaluation :: Patient was given aspirin and nitroglycerin. Patient was advised of his findings. Patient has a HEART score of 2. Patient was advised that this is low risk for acute cardiac event. Patient was instructed to follow-up with his primary care physician in 5 to 7 days. Patient was instructed to return if worse in any way. Patient understood and was agreeable with the plan. All questions were answered. Discharge Plan Triage Chief Complaint: Chest Pain ED Provider: Emerson Mukherjee Dx/Rx/DC Orders Clinical Impression: Chest pain, Anxiety Instructions: ED Anxiety Reaction, ED Chest Pain, Uncertain Cause Primary Care Provider: Bertrand Peraza Referrals: Bertrand Peraza DO [Primary Care Provider] - 5-7 Days Print Language: Nigerien Disposition Disposition: Home, Self Care
--- NOTE | 2024-09-04 18:23 | EKG12_ITS ---
Test Reason : CP Blood Pressure : */* mmHG Vent. Rate : 70 BPM Atrial Rate : 70 BPM P-R Int : 156 ms QRS Dur : 104 ms QT Int : 414 ms P-R-T Axes : 54 -10 42 degrees QTcB Int : 447 ms Sinus rhythm with marked sinus arrhythmia Incomplete right bundle branch block Borderline ECG Confirmed by FRANCIA BRYSON MD ([id number]), medical transcription editor EDIS TRAVIS ([id number]) on 09/06/2024 8:13:30 AM Referred By: KATHY Confirmed By: FRANCIA BRYSON MD
[2024-09-04] MEDS: Aspirin 81 MG TAB.CHEW 324 MG PO (18:40)
[2024-09-04 18:46] LABS: Absolute Lymphocyte Count 3.51 X10^3/uL (0.83-4.51); Absolute Neutrophil Count 3.9 X10^3/uL (2.0-7.7); Basophil# 0.03 X10^3/uL; Basophil% 0.4 % (0-1); Eosinophils% 1.2 % (0-5); Hematocrit 44.1 % (40-54); Hemoglobin 16.1 g/dL (13.0-16.5); Lymphocyte # 3.51 X10^3/ul (0.83-4.51); Lymphocyte % 43.8 % (19-41); Mean Corp Hgb Conc 36.5 g/dL (32-36); Mean Corpuscular Hgb 31.6 pg (27.0-32.0); Mean Corpuscular Volume 86.5 fL (80-94); Mean Platelet Vol. 9.2 fl (6.2-12.0); Monocyte# 0.49 X10^3/uL; Monocyte% 6.1 % (0-10); NRBC Flagged by Analyzer 0 % (0-5); Neutrophil # 3.87 X10^3/uL (2.7-7.7); Neutrophil % 48.3 % (47-70); Platelet Count 245 K/mm3 (150-450); RBC Distribution Width CV 12.6 % (11.6-14.6); RBC Distribution Width SD 39.8 fl (35.1-43.9)
--- NOTE | 2024-09-04 18:50 | RAD_ITS ---
INDICATION: chest pain EXAMINATION/TECHNIQUE: X-RAY - XR Chest 1 View COMPARISON: 07/14/2020. FINDINGS: LINES/DEVICES: None. LUNGS: No consolidation, edema or effusion. No pneumothorax. MEDIASTINUM AND CARDIOVASCULAR STRUCTURES: Cardiac silhouette not enlarged. Central airways and mediastinal contour are unremarkable. BONES AND SOFT TISSUES: Unremarkable. RAD/Chest 1 View (Portable) IMPRESSION: No radiographic evidence of acute cardiopulmonary disease. Electronically Signed: Armida Cool MD at 19:46 EST Reading Location ID and State: [id number] / Tel , Service support ,
[2024-09-04 18:59] LABS: Anion Gap 6 (5-15); BUN 14 mg/dL (7-18); BUN/Creat Ratio 16.1 RATIO (10-20); Calcium,Total 9.5 mg/dL (8.5-10.1); Chloride 104 mmol/L (98-107); Creatinine, Serum 0.87 mg/dL (0.70-1.30); EST Glomerular Filtration Rate 104 mL/min (>60); Est Glom Filt Rate - Afr Amer 126 mL/min (>60); Glucose 108 mg/dL (74-106); Potassium 3.7 mmol/L (3.5-5.1); Sodium Level 139 mmol/L (136-145); Troponin-I HS (w/2H Reflex) 6 pg/mL (3.0-78.0)
[2024-09-04] MEDS: Nitroglycerin SL (ED/IMG/CATH) 0.4 MG TABLET SL (19:06)
[2024-09-04 20:28] LABS: Reflex Troponin-HS? (from REC) Y
[2024-09-04 21:02] LABS: Troponin-I HS 6 pg/mL (3.0-78.0)
== END 2024-09-04 21:44 | disposition home or self-care (01) ==
PROVIDERS: Emergency Provider Emergency Medicine; PCP Family Medicine; Visit Provider Emergency Medicine
DX: R07.9 Chest pain, unspecified (principal); F41.9 Anxiety disorder, unspecified; I10 Essential (primary) hypertension; R42 Dizziness and giddiness; R06.02 Shortness of breath; R00.2 Palpitations; R30.0 Dysuria; R51.9 Headache, unspecified
CPT/HCPCS: 71045; 80048; 84484; 85025; 93005; 99285; A4216